=== PATIENT | male | born 1990 | race Caucasian/White ===

== ENCOUNTER 2021-12-26 03:06 | Inpatient (IN) | payer BC, OTHER ==
[~2021-12-26] VITALS: Ht 172.7 cm; Wt 109.8 kg
--- NOTE | 2021-12-26 03:09 | NUR ---
DR. PISANO AT BEDSIDE.
--- NOTE | 2021-12-26 03:26 | NUR ---
Patient is accompanied by Lottie OAKLEY to CT
--- NOTE | 2021-12-26 03:26 | NUR ---
LAB AT BEDSIDE.
--- NOTE | 2021-12-26 03:26 | NUR ---
Patient taken to CT
[2021-12-26 03:31] LABS: HEMATOCRIT 45.3 % (36.7-47.1); MEAN CORPUSCULAR HEMOGLOBIN 27.4 uug (23.8-33.4); MEAN CORPUSCULAR VOLUME 81.7 fL (73.0-96.2); PLATELET COUNT (AUTO) 468 K/uL (152-348)
[2021-12-26 03:33] LABS: CARBON DIOXIDE 23 mmol/L (21-32); CHLORIDE 101 mmol/L (98-107); CREATININE 2.5 mg/dL (0.6-1.3); GLUCOSE 193 mg/dL (74-106); POTASSIUM 4.5 mmol/L (3.5-5.1); UREA NITROGEN, BLOOD 28 mg/dL (7-18)
[2021-12-26] MEDS ORDERED: SWABABLE VALVE TRANSFER SET EA MC ONE (03:33)
[2021-12-26] MEDS ORDERED: IOHEXOL 300MG/ML 100 ML INFUS..BTL ONE (03:33)
[2021-12-26] MEDS ORDERED: IV NORMAL SALINE 250 ML IV ONE (03:33)
[2021-12-26 03:43] LABS: ALANINE AMINOTRANSFERASE 60 U/L (16-63); ALKALINE PHOSPHATASE 73 U/L (50-136); ASPARTATE AMINOTRANSFERASE 17 U/L (15-37); BILIRUBIN,DIRECT < 0.1 mg/dL (0.0-0.2); BILIRUBIN,TOTAL 0.2 mg/dL (0.2-1.0); TOTAL PROTEIN, SERUM 7.3 g/dL (6.4-8.2)
--- NOTE | 2021-12-26 03:47 | NUR ---
Patient is back from CT
[2021-12-26] MEDS ORDERED: ASPIRIN 325 MG TABLET ONE (04:23)
--- NOTE | 2021-12-26 04:29 | NUR ---
NEUROLOGY DR. HAIRSTON ON PHONE WITH DR. PISANO.
[2021-12-26] MEDS ORDERED: ASPIRIN 325 MG TABLET PO ONE (04:30)
[2021-12-26] MEDS ORDERED: IV NS 1000 ML 1,000 ML IV ONE (04:30)
--- NOTE | 2021-12-26 04:35 | NUR ---
CALLED [facility] FOR PANEL CALL, [facility] PAGED.
[2021-12-26] MEDS ORDERED: LISI10TA29 PO (04:39)
[2021-12-26] MEDS ORDERED: SITA1TBM7 PO (04:39)
[2021-12-26] MEDS ORDERED: DAPA10TA PO (04:39)
[2021-12-26] MEDS ORDERED: ACETAMINOPHEN 325 MG TABLET PO PRN (05:45)
[2021-12-26] MEDS ORDERED: MAGNESIUM HYDROXIDE 30 ML LIQUID UDC PO PRN (05:45)
[2021-12-26] MEDS ORDERED: ONDANSETRON 4 MG/2 ML VIAL IV PRN (05:45)
[2021-12-26] MEDS ORDERED: LORAZEPAM 2 MG/1 ML VIAL ONE (06:08)
[2021-12-26] MEDS ORDERED: LORAZEPAM 2 MG/1 ML VIAL IV ONE (06:15)
[2021-12-26 06:20] LABS: HEMATOCRIT 41.6 % (36.7-47.1); MEAN CORPUSCULAR HEMOGLOBIN 27.7 uug (23.8-33.4); PLATELET COUNT (AUTO) 397 K/uL (152-348)
--- NOTE | 2021-12-26 07:10 | NUR ---
RECEIVED FROM ER A 31 YO MALE AWAKE ALERT AND VERBALLY RESPONSIVE, NO SIGNS OF ACUTE PAIN OR DISTRESS ON RA SATURATING 96-98%. ROUTINE ADMISSION ASSESSMENT WELL NEURO ASSESSMENT INITIATED, NO SLURRING OF SPEECH EXCEPT WEAKNESS AND NUMBNESS RIGHT UPPER ARM. ST ON MONITOR
[2021-12-26] MEDS ORDERED: ATORVASTATIN 20 MG TABLET PO SCH (07:15)
--- NOTE | 2021-12-26 07:20 | NUR ---
GAVE SBAR REPORT TO VASQUEZ BANDA RN.
[2021-12-26 08:02] VITALS: BP 100/40
[2021-12-26] MEDS ORDERED: INSU100V37 SQ (10:50)
[2021-12-26 11:15] LABS: POTASSIUM 5.1 mmol/L (3.5-5.1)
[2021-12-26 11:16] LABS: CREATININE 2.6 mg/dL (0.6-1.3)
--- NOTE | 2021-12-26 11:23 | NUR ---
Social Work consult was requested for substance dependence treatment resources. Patient is a 31-year-old male admitted to the hospital for paresthesia. Upon psychiatric social worker supervisor assessment, patient was alert and oriented X4. Patient presents with flat affect and is lethargic. Patient presents with fair judgement and insight. His mother, Mihaela Fink ([phone]), was in the patients room during assessment. Patient states that his primary contact lens blocker and cutter is his mother, Mihaela ([phone]) and they have a good relationship. Patient states that he lives in a two-story house with his mother, Mihaela ([phone]) and his father, Pop ([phone]) at [address] [place] [id number]. Patient states that he is working for a [employer] for 8 to 9 years. Patient states he is independent with is ADLs and is currently driving. SW explored patients history of substance abuse. Patient states that he uses cocaine and marijuana edibles and the last time he used cocaine was Friday12/22/2021. There is no current toxicology report or a previous report. SW gave the patient substance dependence treatment resources and placed these resources in the chart. SW gave resources for [facility] [address] [id number] ([phone]), [facility] [address] [facility] [address] ([phone]) and [address] [address] ([phone]). Patient appears unmotivated for treatment. Patient denies a history of psychiatric diagnosis. Patient denied suicidal or homicidal ideation. Patient states that his mother, Mihaela ([phone]) will drive him home at discharge and his mother, Mihaela ([phone]) confirmed this.
[2021-12-26 11:45] LABS: BILIRUBIN,TOTAL 0.1 mg/dL (0.2-1.0)
[2021-12-26 11:46] LABS: TOTAL PROTEIN, SERUM 6.8 g/dL (6.4-8.2)
--- NOTE | 2021-12-26 12:00 | NUR ---
SEEN BY HOSPITALIST REVIEWED MEDS WITH ORDERS. SCHEDULE FOR MRI BRAIN WITHOUT CONTRAST AT 1400
[2021-12-26 12:23] LABS: THYROID STIMULATING HORMONE 1.767 mIU/mL (0.358-3.740)
[2021-12-26] MEDS ORDERED: DEXTROSE 50% 50 ML DISP.SYRIN IV PRN (13:00)
[2021-12-26 14:01] VITALS: BP 123/68
[2021-12-26 14:14] LABS: *BILIRUBIN,URIN NEGATIVE (NEGATIVE); *BLOOD, URINE NEGATIVE (NEGATIVE); *CLARITY,URINE CLEAR (CLEAR); *COLOR,URINE YELLOW (YELLOW); *KETONES,URINE NEGATIVE (NEGATIVE); *UROBILINOGEN,URINE 0.2 E.U./dl (NORMAL); LEUKOCYTE ESTERASE ,URINE NEGATIVE (NEGATIVE); NITRITE, URINE NEGATIVE (NEGATIVE); PH,URINE 5.5 (5.0-8.0); UGLUCOSE 2+ (NEGATIVE)
[2021-12-26 14:38] LABS: *AMPHETAMINE, URINE NEGATIVE (NEGATIVE); *CANNABINOID, URINE POSITIVE (NEGATIVE); *COCCAINE, URINE POSITIVE (NEGATIVE); *OPIATE, URINE NEGATIVE (NEGATIVE); *PHENCYCLIDINE SCREEN,URINE NEGATIVE (NEGATIVE)
[2021-12-26 16:45] VITALS: BP 138/79
--- NOTE | 2021-12-26 17:30 | NUR ---
PATIENT WENT TO [place] FOR MRI VIA AMBULANCE
[2021-12-26] MEDS: BLOOD SUGAR DIAGNOSTIC 1 EACH STRIP VI SCH ×2 (17:40→21:03)
--- NOTE | 2021-12-26 18:48 | NUR ---
BACK FROM MRI VIA AMBULANCE
--- NOTE | 2021-12-26 19:23 | NUR ---
Updated Dr. Carbajal on CT results. MRI results still pending.
[2021-12-26 20:00] VITALS: BP 126/71
--- NOTE | 2021-12-26 20:32 | NUR ---
[facility] radiologist Sarah dictated Brain MRI results to this nurse stating that the results showed acute to subacute ischemia in the left parietal lobe and left occipital lobe.
--- NOTE | 2021-12-26 20:43 | NUR ---
Dr. Carbajal notified of MRI results. He was also informed that mother of the patient would like to be contacted regarding the results. Pt okayed that his mother receive results of his MRI.
[2021-12-26] MEDS ORDERED: INSULIN GLARGINE,HUM 300 UNITS/3 ML CARTRIDGE SQ SCH (21:00)
[2021-12-26] MEDS ORDERED: ATORVASTATIN 40 MG TABLET PO SCH (21:00)
[2021-12-26] MEDS: INSULIN REGULAR, HUMAN 300 UNIT/3 ML VIAL SQ PRN (21:03)
[2021-12-26] MEDS: IV LACTATED RINGERS SOLUTION 1,000 ML IV PRN (21:15)
[2021-12-26] MEDS ORDERED: LORAZEPAM 0.5 MG TABLET PO PRN (21:45)
[2021-12-27 00:07] VITALS: BP 135/76
[2021-12-27 04:30] VITALS: BP 140/77
[2021-12-27] MEDS: IV LACTATED RINGERS SOLUTION 1,000 ML IV PRN (06:21)
[2021-12-27] MEDS: BLOOD SUGAR DIAGNOSTIC 1 EACH STRIP VI SCH (06:25)
[2021-12-27 06:45] LABS: HEMATOCRIT 42.3 % (36.7-47.1); MEAN CORPUSCULAR HEMOGLOBIN 27.9 uug (23.8-33.4); MEAN CORPUSCULAR VOLUME 82.1 fL (73.0-96.2); PLATELET COUNT (AUTO) 336 K/uL (152-348)
[2021-12-27 07:13] LABS: PHOSPHOROUS 3.9 mg/dL (2.5-4.9); POTASSIUM 3.9 mmol/L (3.5-5.1)
[2021-12-27] MEDS: INSULIN REGULAR, HUMAN 300 UNIT/3 ML VIAL SQ PRN (07:56)
--- NOTE | 2021-12-27 08:00 | NUR ---
AWAKE ALERT AND ANXIOUS LYING IN BED, SINUS TACH ON MONITOR 110, DENIES PAIN OR DISTRESS. CLOSELY MONITORED
[2021-12-27 08:52] VITALS: BP 139/86
[2021-12-27] MEDS ORDERED: ASPIRIN 81 MG TAB.CHEW PO SCH (09:00)
[2021-12-27] MEDS ORDERED: LISINOPRIL 10 MG TABLET PO SCH ×2 (09:00)
[2021-12-27 09:48] LABS: *BILIRUBIN,URIN NEGATIVE (NEGATIVE); *CLARITY,URINE CLEAR (CLEAR); *COLOR,URINE YELLOW (YELLOW); *KETONES,URINE NEGATIVE (NEGATIVE); *UROBILINOGEN,URINE 0.2 E.U./dl (NORMAL); LEUKOCYTE ESTERASE ,URINE NEGATIVE (NEGATIVE); NITRITE, URINE NEGATIVE (NEGATIVE); PH,URINE 5.5 (5.0-8.0)
[2021-12-27 09:49] LABS: *BLOOD, URINE TRACE (NEGATIVE); UGLUCOSE 1+ (NEGATIVE)
[2021-12-27 10:18] LABS: *CREATININE,URINE 85.8 mg/dL (30-125); *URINE TOTAL PROTEIN RANDOM 10.5 mg/dL (<150/24HR)
[2021-12-27] MEDS ORDERED: ASPI81TA31 PO (11:00)
[2021-12-27] MEDS ORDERED: ATOR40TA PO (11:00)
--- NOTE | 2021-12-27 11:30 | NUR ---
SEEN BY HOSPITALIST FOR FOLLOW-UP WITH ORDERS. PLAN DISCHARGE TODAY, OVERHEAD IRRIGATOR AWARE, MOTHER AT BEDSIDE
--- NOTE | 2021-12-27 11:56 | NUR ---
MEDICATIONS, EDUCATION, FOLLOW-UP INSTRUCTION GIVEN TO PATIENT AND MOTHER. PATIENT STABLE.
[2021-12-27 12:42] LABS: RBC,URINE 0-3 /HPF (0-3); WBC,URINE NONE SEEN /HPF (0-3)
[2021-12-27 12:44] LABS: BACTERIA,URINE NONE SEEN /HPF (NONE SEEN); SQUAMOUS EPITHELIAL CELL,UR NONE SEEN /HPF (NONE SEEN); URIC ACID CRYSTALS,URINE MODERATE /HPF (NONE SEEN)
== END 2021-12-27 12:00 | disposition home or self-care (01) | DRG 64 ==
LOC: ER 03:13 → TELE3 07:08
PROVIDERS: ADMIT Nurse Practitioner Family; ATTEND Nurse Practitioner Family
DX: I63.9 Cerebral infarction, unspecified (principal); N17.0 Acute kidney failure with tubular necrosis; R47.81 Slurred speech; R29.702 NIHSS score 2; D72.829 Elevated white blood cell count, unspecified; E11.9 Type 2 diabetes mellitus without complications; Z20.822 Contact with and (suspected) exposure to COVID-19; I10 Essential (primary) hypertension; Z86.73 Personal history of transient ischemic attack (TIA), and cerebral infarction without residual deficits; F19.10 Other psychoactive substance abuse, uncomplicated; F43.9 Reaction to severe stress, unspecified; F14.10 Cocaine abuse, uncomplicated; R20.0 Anesthesia of skin; Z82.49 Family history of ischemic heart disease and other diseases of the circulatory system
CPT/HCPCS: 36415; 70450; 70496; 70551; 71045; 83735; 84100; 84156; 84300; 84443; 84484; 85025; 85651; 85730; 93005; 93307; 97161; A4663; G0378; J1815; J2060; J7040; J7120; Q9967